=== PATIENT | male | born 1990 | race Caucasian/White ===

== ENCOUNTER 2022-02-14 14:48 | Emergency (ER) | payer SELFPAY ==
--- NOTE | 2022-02-14 18:44 | ER ---
Nurse's Notes [facility] Name: Josue Aldridge Age: 31 yrs Sex: Male : 1990 Arrival Date: 02/14/2022 Time: 14:50 Bed 10 Private MD: Diagnosis: Edema, unspecified-right leg Presentation: 02/14 14:57 Chief complaint: Patient states: "Yesterday I noticed my right leg was starting to ab2 swell. But today I felt like I was losing circulation.". Coronavirus screen: Vaccine status: Patient reports being unvaccinated. Client denies travel out of the [place] in the last 14 days. At this time, the client does not indicate any symptoms associated with coronavirus-19. Ebola Screen: Patient negative for fever greater than or equal to 101.5 degrees Fahrenheit, and additional compatible Ebola Virus Disease symptoms Patient denies exposure to infectious person. Patient denies travel to an Ebola-affected area in the 21 days before illness onset. No symptoms or risks identified at this time. Initial Sepsis Screen: Does the patient meet any 2 criteria? No. Patient's initial sepsis screen is negative. Does the patient have a suspected source of infection? No. Patient's initial sepsis screen is negative. Risk Assessment: Do you want to hurt yourself or someone else? Patient reports no desire to harm self or others. Onset of symptoms is unknown. 14:57 Method Of Arrival: Ambulatory ab2 14:57 Acuity: PRINCE 3 ab2 Triage Assessment: 14:59 General: Appears in no apparent distress. comfortable, Behavior is calm, cooperative, ab2 appropriate for age. Pain: Denies pain. EENT: No deficits noted. No signs and/or symptoms were reported regarding the EENT system. Neuro: Level of Consciousness is awake, alert, obeys commands, Oriented to person, place, time, situation, Appropriate for age Cuff Slitter are equal bilaterally Moves all extremities. Gait is steady, Speech is normal, Facial symmetry appears normal. Cardiovascular: No deficits noted. Denies chest pain, shortness of breath, Patient's skin is warm and dry. Respiratory: No deficits noted. Airway is patent Respiratory effort is even, unlabored, Respiratory pattern is regular, symmetrical. GI: No deficits noted. No signs and/or symptoms were reported involving the gastrointestinal system. : No deficits noted. No signs and/or symptoms were reported regarding the genitourinary system. Derm:. Musculoskeletal: Swelling present in right leg. Historical: - Allergies: 14:59 No Known Allergies; ab2 - PMHx: 14:59 None; ab2 - PSHx: 14:59 None; ab2 - Immunization history:: Adult Immunizations up to date. - Social history:: Smoking status: Patient denies any tobacco usage or history of. Screenin:54 Abuse screen: Denies threats or abuse. Denies injuries from another. Nutritional ab2 screening: No deficits noted. Tuberculosis screening: No symptoms or risk factors identified. Fall Risk None identified. Assessment: 17:53 General: Appears in no apparent distress. comfortable, Behavior is calm, cooperative, ab2 appropriate for age. Pain: Complains of pain in right leg. Neuro: Level of Consciousness is awake, alert, obeys commands, Oriented to person, place, time, situation, Appropriate for age Cuff Slitter are equal bilaterally Moves all extremities. Gait is steady, Speech is normal, Facial symmetry appears normal. Cardiovascular: No deficits noted. Denies chest pain, shortness of breath, Heart tones S1 S2 present Patient's skin is warm and dry. Respiratory: Airway is patent Respiratory effort is even, unlabored, Respiratory pattern is regular, symmetrical, Breath sounds are clear bilaterally. GI: No deficits noted. No signs and/or symptoms were reported involving the gastrointestinal system. Abdomen is round non-distended. : No deficits noted. No signs and/or symptoms were reported regarding the genitourinary system. Derm: Skin is intact, Skin is pink, warm \\T\\ dry. Vital Signs: 14:57 BP 159 / 99; Pulse 81; Resp 17; Temp 98.1(TE); Pulse Ox 98% on R/A; Weight 113.4 kg; ab2 Height 5 ft. 11 in. (180.34 cm); Pain 0/10; 17:52 BP 130 / 92; Pulse 79; Resp 17; Pulse Ox 100% on R/A; ab2 14:57 Body Mass Index 34.87 (113.40 kg, 180.34 cm) ab2 ED Course: 14:50 Patient arrived in ED. am2 14:59 Triage completed. ab2 15:00 Arm band placed on right wrist. ab2 15:40 Hua Eddy PA is PHCP. cp 15:40 Amando Carbone MD is Attending Physician. cp 17:54 Patient has correct armband on for positive identification. Bed in low position. Call ab2 light in reach. Side rails up X2. Adult w/ patient. 17:54 No provider procedures requiring assistance completed. ab2 18:36 US Extremity Venous Unilateral Ltd In Process Unspecified. EDMS 18:36 US Lower Extremity Artery Uni Ltd In Process Unspecified. EDMS 19:04 Patient did not have IV access during this emergency room visit. ss Administered Medications: No medications were administered Outcome: 18:44 Discharge ordered by MD. cp 19:04 Condition: good ss 19:04 Discharge instructions given to patient, Instructed on discharge instructions, follow up and referral plans. Demonstrated understanding of instructions, follow-up care. 19:09 Discharged to home ambulatory. ld1 19:09 Patient left the ED. ld1 Signatures: Dispatcher [employer] [facility] Lala Retana RN RN Hua Eddy PA PA Christine Powell am2 Luzmaria Estes RN RN ld1 Adrian Ching ab2
--- NOTE | 2022-02-14 18:44 | EDPHYS ---
Physician Documentation [facility] Name: Josue Aldridge Age: 31 yrs Sex: Male : 1990 Arrival Date: 02/14/2022 Time: 14:50 Bed 10 Private MD: ED Physician Amando Carbone HPI: 02/14 17:15 This 31 yrs old Male presents to ER via Ambulatory with complaints of Leg Swelling - cp right. 17:15 The patient presents with swelling. The complaints affect the right lower leg. Context: cp resulted from an unknown cause, the patient can fully bear weight, the patient is able to ambulate, without difficulty, Problem is a result from a previous injury: No. Onset: The symptoms/episode began/occurred yesterday. Associated signs and symptoms: Pertinent positives: swelling, Pertinent negatives calf tenderness, fever, numbness, warmth, weakness. Treatment prior to arrival includes: no previous treatment. Historical: - Allergies: 14:59 No Known Allergies; ab2 - PMHx: 14:59 None; ab2 - PSHx: 14:59 None; ab2 - Immunization history:: Adult Immunizations up to date. - Social history:: Smoking status: Patient denies any tobacco usage or history of. ROS: 17:20 MS/extremity: Positive for swelling, of the right lower leg, Negative for injury or cp acute deformity, decreased range of motion, ecchymosis, paresthesias, warmth. 17:20 Eyes: Negative for injury, pain, redness, and discharge. cp 17:20 Constitutional: Negative for body aches, chills, fever, poor PO intake. 17:20 ENT: Negative for ear pain, sore throat, difficulty swallowing, difficulty handling secretions. 17:20 Cardiovascular: Negative for chest pain, palpitations. 17:20 Respiratory: Negative for cough, shortness of breath, wheezing. 17:20 Abdomen/GI: Negative for abdominal pain, nausea, vomiting, and diarrhea. 17:20 Back: Negative for pain at rest, pain with movement. 17:20 Neuro: Negative for altered mental status, dizziness, headache, numbness, weakness. 17:20 All other systems are negative. Exam: 17:25 Constitutional: The patient appears in no acute distress, alert, awake, non-toxic, well cp developed, well nourished. 17:25 Head/Face: Normocephalic, atraumatic. cp 17:25 Chest/axilla: Inspection: normal. 17:25 Cardiovascular: Rate: normal, Rhythm: regular, Heart sounds: murmur, not appreciated, JVD: is not appreciated. 17:25 Respiratory: the patient does not display signs of respiratory distress, Respirations: normal, no use of accessory muscles, no retractions, labored breathing, is not present, Breath sounds: are clear throughout, no decreased breath sounds, no stridor, no wheezing. 17:25 Abdomen/GI: Exam negative for discomfort, distension, guarding, Inspection: abdomen appears normal. 17:25 Back: pain, is absent, ROM is normal. 17:25 Musculoskeletal/extremity: the right leg Sensation intact. DVT Exam: no pain, no tenderness, negative Homans' sign noted on exam, no erythema, no increased warmth, swelling, that is mild, of the right leg. 17:25 Skin: cellulitis, is not appreciated, no rash present. 17:25 Neuro: Orientation: to person, place \T\ time. Mentation: is normal, Motor: moves all fours, strength is normal, Gait: is steady, at a normal pace, without difficulty. Vital Signs: 14:57 BP 159 / 99; Pulse 81; Resp 17; Temp 98.1(TE); Pulse Ox 98% on R/A; Weight 113.4 kg; ab2 Height 5 ft. 11 in. (180.34 cm); Pain 0/10; 17:52 BP 130 / 92; Pulse 79; Resp 17; Pulse Ox 100% on R/A; ab2 14:57 Body Mass Index 34.87 (113.40 kg, 180.34 cm) ab2 MDM: 17:09 Patient medically screened. cp 17:30 Differential diagnosis: DVT, cellulitis, dependent edema. cp 18:44 Data reviewed: vital signs, nurses notes, radiologic studies, ultrasound. cp 18:44 Counseling: I had a detailed discussion with the patient and/or guardian regarding: the cp historical points, exam findings, and any diagnostic results supporting the discharge/admit diagnosis, radiology results, the need for outpatient follow up, a family practitioner, to return to the emergency department if symptoms worsen or persist or if there are any questions or concerns that arise at home. 02/14 16:44 Order name: US Extremity Venous Unilateral Ltd cp 02/14 17:11 Order name: US Lower Extremity Artery Uni Ltd cp Administered Medications: No medications were administered Disposition Summary: 02/14/22 18:44 Discharge Ordered Location: Home cp Problem: new cp Symptoms: are unchanged cp Condition: Stable cp Diagnosis - Edema, unspecified - right leg cp Followup: cp - With: Private Physician - When: 2 - 3 days - Reason: Worsening of condition Discharge Instructions: - Discharge Summary Sheet cp - Peripheral Edema cp Forms: - Medication Reconciliation Form cp - Thank You Letter cp - Antibiotic Education cp - Prescription Opioid Use cp Signatures: Dispatcher [employer] EDMS Hua Eddy PA PA cp Bleininger, Alexis ab2
--- NOTE | 2022-02-14 19:13 | RAD REPORT ---
EXAM DESCRIPTION: US - Extremity Venous Uni Ltd - 02/14/2022 6:34 pm CLINICAL HISTORY: SWELLING COMPARISON: None. TECHNIQUE: Real-time sonographic evaluation of the right lower extremity deep venous systems was per formed. FINDINGS: Normal compressibility, flow augmentation, phasic flow and spontaneous flow are identified in the right lower extremity common femoral, superficial femoral, popliteal and posterior tibial vei ns. No intraluminal filling defects seen. IMPRESSION: No DVT in the right lower extremity.
--- NOTE | 2022-02-14 19:14 | RAD REPORT ---
EXAM DESCRIPTION: US - Lower Extremity Artery Uni Ltd - 02/14/2022 6:34 pm CLINICAL HISTORY: SWELLING COMPARISON: No comparisons TECHNIQUE: Doppler evaluation of the right leg arterial tree performed. Waveforms and velocity value s were obtained along with visual inspection. FINDINGS: Normal, triphasic waveform pattern is seen throughout the length of the right lower extrem ity. No occlusion or focal flow restricting lesion. No suspicious velocity value or waveform pattern. IMPRESSION: Unremarkable right leg arterial study.
[2022-02-14 22:58] VITALS: BP 130/92; O2SAT 100
[2022-02-14 22:59] VITALS: TEMP 98.1
== END 2022-02-14 19:09 | disposition home or self-care (01) ==
LOC: ER 14:48
DX: R60.0 Localized edema (principal)
CPT/HCPCS: 93926; 93971; 99283